=== PATIENT | female | born 1995 | race Caucasian/White ===

== ENCOUNTER 2017-11-14 04:56 | Inpatient (IN) ==
[~2017-11-14 04:56] MED LIST: *HR* Nalbuphine 10 MG/ML AMPUL IVP PRN; Famotidine 20 MG/2 ML VIAL IVP PRN; Naloxone 0.4 MG/ML INJ IVP PRN
[2017-11-14] MEDS ORDERED: Ringers Solution, Lactated 1,000 ML IVC SCH (05:00)
[2017-11-14] MEDS ORDERED: Ringers Solution, Lactated 1,000 ML ONE (05:01)
--- NOTE | 2017-11-14 05:09 | OB/GYN History & Physical ---
Date of Encounter: 11/14/17 Time of Encounter: 05:06 Assessment and Plan (1) and not yet delivered in third trimester Current visit: Yes Status: Acute (2) 39 weeks gestation of Current visit: Yes Status: Acute (3) Active labor at term Current visit: Yes Status: Acute (4) Previous section complicating Current visit: Yes Status: Acute (5) Desires (vaginal after ) trial Current visit: Yes Status: Acute Patient will get an epidural once comfortable well artificial rupture plan is to anticipate vaginal delivery History of Present Illness HPI: Ms. Cancino is a 22 year old female 3 para 2001 at 39-2/7 weeks who presented to labor and delivery with complaint of active labor. Patient gets her care at another institution that she felt she was not able to make it to that place so she came here. Patient is a scheduled TOLAC this coming weekend. Patient states she had a section approximately one year ago secondary to cystic hygroma but has had one successful vaginal delivery prior to that. Patient does not want a repeat section and still wants to proceed on with a TOLAC. Did explained to the patient that there is a risk for uterine rupture both maternal and morbidity and mortality associated with this procedure and she still wants to proceed on with a trial. We did have the patient sign the consent indicating she understands all of the risks of this procedure. Patient was 7 cm on admission denies any leaking of fluid. Patient states contractions started approximately 11:00 last night got very uncomfortable approximately 3 AM. She states that her GBS is negative we will attempt to get her records at this time. Patient is requesting epidural. Past Med Surg Social Fam HX - Past Medical History Source: patient Medical history: thyroid disease (States has overactive thyroid states they are going to remove it after the baby is born. On no medications at this time) Psychiatric history: no psych history - Past Surgical History Surgical History: (x 1) Additional surgical history: cyst removed - Social History Smoking Status: Never smoker Smokeless Tobacco Status: Yes Alcohol use: none Drug use: none Occupational status: unemployed Current living situation: Home - Independent Activity Level: Independent ambulation Recent Out of Country Travel Within the Last 8 Weeks: No Exposure or Possible Exposure to Illness During Travel: No - Additional Family History Additional family history: Family history noncontributory Obstetrical History - Pregnancies : 3 Para: 2 Term: 2 : 0 Ab's: 0 Livin Medications and Allergies 3 Allergy/AdvReac Type Severity Reaction Status Date / Time aspirin AdvReac See Verified 01/23/15 08:34 Comments Review of System OB All systems PM: reviewed and no additional remarkable complaints except as stated - Genitourinary Genitourinary: other (Contractions every 2-3 minutes) Exam - Constitutional Constitutional: well developed, well nourished, average body habitus, mild distress - HEENT HEENT: EOMI, PERRL, Mucus Membranes Moist - Neck Neck exam: full ROM - Lungs Respiratory exam: CTAB - Cardiovascular Cardiovascular exam: RRR - Abdomen Abdomen: Present: bowel sounds normal, gravid ( heart tones 140s reactive contractions every 2 minutes) - Vulva Vulva: bilateral: normal - Vagina Vagina: Present: normal moisture - Cervix Dilation: 7 Effacement: 100 Station: 0 - Uterus Uterus exam: Present: normal size - Adnexa Adnexa: bilateral: normal Results All other labs normal.
[2017-11-14 05:49] LABS: Amphetamine Screen,Urine Negative ng/mL (Cutoff=1000); Barbiturate Screen,Urine Negative ng/mL (Cutoff=200); Benzodiazepines Screen,Urine Negative ng/mL (Cutoff=200); Cannabinoid Screen,Urine Negative ng/mL (Cutoff = 50); Cocaine Screen,Urine Negative ng/mL (Cutoff= 300); Opiate Screen,Urine Negative ng/mL (Cutoff=300); Phencyclidine Screen,Urine Negative ng/mL (Cutoff=25)
[2017-11-14 06:09] LABS: Hematocrit 32.4 % (35.3-44.9); Mean Corpuscular HGB Conc 30.9 g/dL (31.6-35.5); Mean Corpuscular Hemoglobin 21.4 pg (28.0-33.3); Mean Corpuscular Volume 69.2 fL (83.0-100.0); Mean Platelet Volume 10.1 fL (9.4-12.4); Platelet Count 267 K/mcL (140-400); Red Blood Count 4.68 M/mcL (3.82-4.97); Red Cell Distribution Width 20.7 % (11.5-14.5)
[2017-11-14] MEDS ORDERED: Bupivacaine-MPF 0.25% 10 ML VIAL EP ONE (06:29)
[2017-11-14] MEDS ORDERED: *HR* FentaNYL (PF) 100 MCG/2 ML VIAL EP ONE (06:29)
[2017-11-14] MEDS ORDERED: Epidural Premix (fent/bupiv) 110 ML EP SCH (06:30)
[2017-11-14] MEDS ORDERED: Lidocaine -MPF 2% 5 ML VIAL ONE (06:32)
[2017-11-14] MEDS ORDERED: Epidural Premix (fent/bupiv) 110 ML EP ONE (06:34)
[2017-11-14] MEDS ORDERED: Oxytocin 20 units/ LR 1000 mL 20 UNIT/1,000 ML BAG IVC ONE (06:55)
--- NOTE | 2017-11-14 07:33 | OB/GYN Procedure Note ---
Delivery - Delivery Date: 11/14/17 Provider: Davis Carrasco Intrapartum events: meconium, precipitous labor- <3hr Delivery induction: AROM Delivery augmentation: rupture of membranes Delivery monitor: external FHT Anesthesia: local Quantitated Blood Loss: 200 - Infant (s) A Delivery Date: 11/14/17 Infant Delivery Time: 07:00 Presentation: vertex Position: LEONOR Route of delivery: Gender: Male Viability: Viable Pounds: 8 Ounces: 13 Weight Gram: 4010 kg at 1 minute: 9 at 5 mins: 9 Shoulder Dystocia: not encountered Specimens collected: cord blood Placenta: spontaneous Cord: 3 umbilical vessels - Repair Episiotomy: none Laceration Description: Perineal - 2nd Degree - Complications Delivery complications: meconium Delivery comments: I examined this patient and my medical decision-making was reviewed with the Resident Physician. I agree with the documented findings, disposition and treatment plan as described except to the extent set forth below. Jordi Carrasco Is a 22-year-old 3 para 2 at 39-2/7 weeks who presented to labor and delivery in active labor. Patient gets her care at another facility was supposed to deliver at [facility] patient was can be a scheduled TOLAC this coming weekend. Patient was 7 cm on admission and was too unstable to transfer we did credit support counselor on the risks of doing a with risk of mortality and morbidity associated with this she still wanted to proceed on did not want a section appropriate consents were signed we did attempt to get an epidural for the patient unfortunately patient could not sit still and when she was examined she was noted to be complete she was artificially ruptured for thick meconium was noted patient pushed twice and delivered a viable male infant in left occiput anterior presentation at 0700 . There was no nuchal cord, there was thick meconium the was bulb suctioned the abdomen Apgars were 9 at 1 minute, 9 appointment, infant weight was 8 lbs. 13 oz. Placenta was delivered spontaneously with a three-vessel cord crm dynamics developer Dr. Carrasco, anesthesia local, estimated blood loss 200 mL. Patient had a second-degree perineal laceration she was also noted have a large pedunculated piece of vaginal pressure protruding out of the vagina from previous vaginal delivery repair. We did infiltrate this and excise it so would not cause any problems in the future this was then closed using a 3-0 Monocryl in a running locking stitch. The second degree was then closed also with 3-0 Monocryl in the usual fashion. Cervix and vagina was visualized intact and uterus was explored C- section scar was noted be intact. All needles lap sponge counts were correct patient really observed 2 hours before being taken floor. - Disposition Mom disposition: stable in LDR [place] disposition: stable in LDR
[2017-11-14] MEDS ORDERED: *HR* HYDROcodone/Acet 5/325 mg TABLET PO PRN (07:43)
[2017-11-14] MEDS ORDERED: Oxytocin 20 units/ LR 1000 mL 20 UNIT/1,000 ML BAG IVC SCH (07:43)
[2017-11-14] MEDS ORDERED: Rho Immune Globulin 1,500 UNIT SYRINGE IM PRN (07:43)
[2017-11-14] MEDS ORDERED: Measles/Mumps/Rubella Vacc 0.5 ML VIAL SQ PRN (07:43)
[2017-11-14] MEDS ORDERED: Acetaminophen 325 MG TABLET PO PRN (07:43)
[2017-11-14 08:28] LABS: HIV-1&2 Antibody & p24 Ag Nonreactive (Nonreactive); Hepatitis B Surface Antigen Nonreactive (Nonreactive)
[2017-11-14] MEDS ORDERED: Prenatal Vit/FA 1 EACH TABLET PO SCH (09:00)
[2017-11-14] MEDS: Ibuprofen 600 MG TABLET PO PRN ×2 (10:15→20:21)
[2017-11-14 11:03] LABS: Rubella IgG Antibody Negative (POSITIVE); Varicella Zoster IgG Antibody Negative
[2017-11-15] MEDS: Ibuprofen 600 MG TABLET PO PRN (04:34)
[2017-11-15 04:52] LABS: Basophils # 0.1 K/mcL (0.0-0.2); Basophils % 0.7 %; Eosinophils # 0.1 K/mcL (0.0-0.6); Eosinophils % 0.8 %; Hematocrit 29.4 % (35.3-44.9); Immature Granulocytes % 1.5 % (0-4); Lymphocytes # 2.1 K/mcL (0.6-4.6); Lymphocytes % 19.1 %; Mean Corpuscular HGB Conc 30.6 g/dL (31.6-35.5); Mean Corpuscular Hemoglobin 21.9 pg (28.0-33.3); Mean Corpuscular Volume 71.5 fL (83.0-100.0); Mean Platelet Volume 10.4 fL (9.4-12.4); Monocytes # 0.9 K/mcL (0.0-1.3); Monocytes % 8.2 %; Neutrophils # 7.7 K/mcL (1.6-8.9); Platelet Count 242 K/mcL (140-400); Red Blood Count 4.11 M/mcL (3.82-4.97); Segmented Neutrophils % 69.7 %
[2017-11-15 08:44] VITALS: BP 121/79
[2017-11-15] MEDS ORDERED: Benzocaine/Menthol 56 GM AEROSOL SPRAY TP PRN (09:53)
--- NOTE | 2017-11-15 09:53 | Discharge Summary ---
Date of Encounter: 11/15/17 Time of Encounter: 09:50 - Discharge Diagnosis (1) Vaginal after Priority: Primary Status: Acute Comments: S/P vaginal delivery after day 1 Pain is well controlled Lochia is light and without clots VSS Tolerating regular diet; passing flatus Urinating without difficulty Breast feeding Discharge home today - Discharge Medications Prescriptions: Ibuprofen [Motrin] 600 mg PO Q6HR PRN #30 tablet PRN Reason: Cramping Breast Pump [BREAST PUMP] 1 each .ROUTE AD #1 each Docusate [Colace] 100 mg PO BID #30 capsule Ferrous Sulfate 325 mg PO BIDWM #180 tablet Home Medications: Acetaminophen [Tylenol] 650 mg PO Q6HR PRN tablet 11/15/17 [Rx] Breast Pump [BREAST PUMP] 1 each .ROUTE AD #1 each 11/15/17 [Rx] Docusate [Colace] 100 mg PO BID #30 capsule 11/15/17 [Rx] Ferrous Sulfate 325 mg PO BIDWM #180 tablet 11/15/17 [Rx] Ibuprofen [Motrin] 600 mg PO Q6HR PRN #30 tablet 11/15/17 [Rx] Vit/FA 1 each PO DAILY tablet 11/15/17 [Rx] Allergies/Adverse Reactions: 3 Allergy/AdvReac Type Severity Reaction Status Date / Time aspirin AdvReac See Verified 01/23/15 08:34 Comments Data Procedures and tests throughout hospitalization: Laboratory Tests 11/14/17 11/14/17 11/14/17 04:56 05:05 06:51 WBC 11.0 RBC 4.68 Hgb 10.0 L Hct 32.4 L MCV 69.2 L MCH 21.4 L MCHC 30.9 L RDW 20.7 H Plt Count 267 MPV 10.1 Immature Gran % Seg Neutrophils % Lymphocytes % Monocytes % Eosinophils % Basophils % Neutrophils # Lymphocytes # Monocytes # Eosinophils # Basophils # Urine Opiates Screen Negative Ur Barbiturates Screen Negative Ur Phencyclidine Scrn Negative Ur Amphetamines Screen Negative U Benzodiazepines Scrn Negative Urine Cocaine Screen Negative U Marijuana (THC) Screen Negative Ur Drug Screen Interp See Below T.pallidum Ab Interpret Hep Bs Antigen Nonreactive HIV Ag/Ab Combo Qual Nonreactive Rubella IgG Antibody VZV IgG Antibody Blood Type Screen Baby's Blood Type Mother's Blood Type Rhogam Indicated Rhogam Req for Mother 11/14/17 11/14/17 11/14/17 06:51 06:51 07:37 WBC RBC Hgb Hct MCV MCH MCHC RDW Plt Count MPV Immature Gran % Seg Neutrophils % Lymphocytes % Monocytes % Eosinophils % Basophils % Neutrophils # Lymphocytes # Monocytes # Eosinophils # Basophils # Urine Opiates Screen Ur Barbiturates Screen Ur Phencyclidine Scrn Ur Amphetamines Screen U Benzodiazepines Scrn Urine Cocaine Screen U Marijuana (THC) Screen Ur Drug Screen Interp T.pallidum Ab Interpret Negative Hep Bs Antigen HIV Ag/Ab Combo Qual Rubella IgG Antibody Negative L VZV IgG Antibody Negative L Blood Type A NEGATIVE Screen Cancelled Baby's Blood Type A RH NEGATIVE Mother's Blood Type A RH NEGATIVE Rhogam Indicated NO Rhogam Req for Mother Cancelled 11/15/17 04:13 WBC 11.0 RBC 4.11 Hgb 9.0 L Hct 29.4 L MCV 71.5 L MCH 21.9 L MCHC 30.6 L RDW 20.0 H Plt Count 242 MPV 10.4 Immature Gran % 1.5 Seg Neutrophils % 69.7 Lymphocytes % 19.1 Monocytes % 8.2 Eosinophils % 0.8 Basophils % 0.7 Neutrophils # 7.7 Lymphocytes # 2.1 Monocytes # 0.9 Eosinophils # 0.1 Basophils # 0.1 Urine Opiates Screen Ur Barbiturates Screen Ur Phencyclidine Scrn Ur Amphetamines Screen U Benzodiazepines Scrn Urine Cocaine Screen U Marijuana (THC) Screen Ur Drug Screen Interp T.pallidum Ab Interpret Hep Bs Antigen HIV Ag/Ab Combo Qual Rubella IgG Antibody VZV IgG Antibody Blood Type Screen Baby's Blood Type Mother's Blood Type Rhogam Indicated Rhogam Req for Mother Labs on day of discharge: Labs from last 24 hours 11/15/17 11/14/17 11/14/17 04:13 07:37 06:51 WBC 11.0 RBC 4.11 Hgb 9.0 L Hct 29.4 L MCV 71.5 L MCH 21.9 L MCHC 30.6 L RDW 20.0 H Plt Count 242 MPV 10.4 Immature Gran % 1.5 Seg Neutrophils % 69.7 Lymphocytes % 19.1 Monocytes % 8.2 Eosinophils % 0.8 Basophils % 0.7 Neutrophils # 7.7 Lymphocytes # 2.1 Monocytes # 0.9 Eosinophils # 0.1 Basophils # 0.1 T.pallidum Ab Interpret Negative Rubella IgG Antibody Negative L VZV IgG Antibody Negative L Screen Cancelled Baby's Blood Type A RH NEGATIVE Mother's Blood Type A RH NEGATIVE Rhogam Indicated NO Rhogam Req for Mother Cancelled Date of admission: 11/14/17 04:56 Primary care physician: PCP NONE Consults: 11/14/17 07:43 Consult to Utility Arborist [CONS] Routine Comment: Vaginal delivery, consult needed Discharging clinician: Nancy Garcia Anticipated date of discharge: 11/15/17 - Patient Status Disposition: Home, Self-Care Condition: Good Functional capacity at discharge: independent ambulation Overall status at discharge: patient is progressing back to baseline - Discharge Instructions Follow Up With: NONE,PCP [Primary Care Provider] - Mariam Kimble CNM [Advanced Practice Nurse] - - Diet and Activity Activity: increase activity as tolerated Diet: regular diet Hospital Course Reason for admission: IUP at term Delivery: Episiotomy: none Other procedures: none complications: none Discharge diagnosis: IUP at term delivered [place] baby: male Time Attestation: Total time spent providing and/or coordinating discharge services: Time Spent: Less than 30 minutes Exam - Constitutional Vitals: Temp Pulse Resp BP Pulse Ox 97.8 F 52 16 121/79 99 11/15/17 07:20 11/15/17 07:20 11/15/17 07:20 11/15/17 07:20 11/14/17 20:05 General appearance IM: cooperative, A&O X 3, pleasant - Respiratory Respiratory exam: Present: CTAB - Cardiovascular Cardiovascular exam IM: Present: RRR, +S1, +S2 - GI/Abdominal GI/Abdominal exam IM: normal bowel sounds, soft - Rectal Rectal exam: deferred - Uterine Tone: Firm Uterus Position: 1 Finger Below Umbilicus, Midline - Extremities Exam Extremities exam IM: Present: normal capillary refill, normal inspection, radial pulses palpable and symmetrical - Neurological Exam Neurological exam: alert, oriented X3
== END 2017-11-15 11:35 | disposition home or self-care (01) | DRG 560 ==
LOC: 1NENULAB → 1NENUOBS 09:42
PROVIDERS: ADMIT Obstetrics & Gynecology; ATTEND Obstetrics & Gynecology